=== PATIENT | female | born 1955 | race Caucasian/White ===

== ENCOUNTER → 2017-04-15 | Outpatient (CLI) | payer BC ==
--- NOTE | 2017-04-16 14:06 | MAMMOGRAPHY REPORT ---
BILATERAL DIGITAL SCREENING MAMMOGRAM WITH CAD: 04/15/2017 CLINICAL HISTORY: Routine screening. Patient has no complaints. TECHNIQUE: Current study was also evaluated with a Computer Aided Detection (CAD) system. Bilatera l CC and MLO views were obtained. COMPARISON: Comparison is made to exams dated: 04/09/2016 mammogram, 03/14/2015 mammogram, 03/08/2014 mammogram, 09/12/2013 ultrasound, 09/12/2013 mammogram, and 02/13/2010 mammogram - [facility]. BREAST COMPOSITION: There are scattered areas of fibroglandular density in both breasts. FINDINGS: There is a prominent left axillary lymph node which measures 2.6 x 2.2 centimeters, for w [facility] ultrasound is recommended for further evaluation. The remainder of both breasts are stable compared to prior exams, without suspicious masses, calcifi cations, or areas of architectural distortion noted. A biopsy marker clip is again noted in the rig ht upper outer quadrant. Bilateral benign-appearing calcifications are not significantly changed. Left inferior breast asymmetry on the MLO view is stable compared to prior exams including the 2012 exam. IMPRESSION: ACR BI-RADS CATEGORY 0: INCOMPLETE EVALUATION: NEED ADDITIONAL IMAGING EVALUATION Prominent left axillary lymph node, for which additional imaging evaluation is recommended. The pat ient will be called to schedule an appointment. Approximately 10% of breast cancers are not detected with mammography. A negative mammographic repor t should not delay biopsy if a clinically suggestive mass is present. Opal Pardo M.D. /:04/15/2017 16:42:42 Mc Kay Stitcher: Vaibhav MEDINA(R)(M), [facility] letter sent: Addl Imaging 0 BI-RADS Code: ACR BI-RADS Category 0: Incomplete Evaluation: Need Additional Imaging Evaluation
== END | disposition home or self-care (01) ==
LOC: C.MAMM 16:16
PROVIDERS: ATTEND Family Medicine
DX: Z12.31 Encounter for screening mammogram for malignant neoplasm of breast (principal); R59.0 Localized enlarged lymph nodes

== ENCOUNTER → 2017-04-29 | Outpatient (CLI) | payer BC ==
--- NOTE | 2017-04-29 13:11 | MAMMOGRAPHY REPORT ---
ULTRASOUND OF LEFT BREAST: 04/29/2017 CLINICAL HISTORY: Callback from screening mammogram for prominent left axillary lymph node. COMPARISON: Comparison is made to exams dated: 04/15/2017 mammogram, 04/09/2016 mammogram, 03/14/2015 m ammogram, 03/08/2014 mammogram, 09/12/2013 ultrasound, and 09/12/2013 mammogram - [facility]. TECHNIQUE: Real-time targeted ultrasound of the left axilla was performed. FINDINGS: Real-time, high resolution targeted ultrasound was performed of the left axilla. In the le ft axilla there is an abnormal left axillary lymph node which measures 1.9 x 1.2 x 1.7 cm. The lymph node is abnormally rounded and there is no echogenic fatty hilum. This corresponds with the abnorma l lymph node seen on the screening mammogram and is indeterminate. Recommend ultrasound guided core needle biopsy for further evaluation. A few other prominent axillary lymph nodes are seen elsewhere in the left axilla, which appear symmetric to the right axillary nodes and the lymph nodes are normal oval in shape and all demonstrate normal fatty frank. The other bilateral axillary lymph nodes appea r stable mammographically compared to multiple prior exams unlike the dominant abnormal left axillary lymph node which is a new finding. IMPRESSION: ACR BI-RADS CATEGORY 4: SUSPICIOUS - FOLLOW-UP RECOMMENDED Abnormal left axillary lymph node, for which ultrasound guided core needle biopsy is recommended for further evaluation. A phone call was made to the physician's office to confirm faxed results were received. The patient was verbally notified of the results. She tentatively scheduled the biopsy before leaving the depart ment. I will leave it up to the patient's physician if she can safely discontinue aspirin for 5 days prior to the procedure. Opal Pardo M.D. /:04/29/2017 08:55:05 Sustainable Landscape Architect: Katt MEDINA(Stephanie)(Ashkan), [facility] letter sent: Abnormal 4/5 BI-RADS Code: ACR BI-RADS Category 4: Suspicious
== END | disposition home or self-care (01) ==
LOC: C.MAMM 08:10
PROVIDERS: ATTEND Family Medicine
DX: R59.0 Localized enlarged lymph nodes (principal)

== ENCOUNTER → 2017-05-04 | Outpatient (CLI) | payer BC ==
--- NOTE | 2017-05-04 10:36 | Discharge Instructions ---
Discharge Instructions Procedure Procedure Date: May 04, 2017. Reason for visit: Left Axillary. Discharge Discharge Date: May 04, 2017. Discharge Diagnosis: post left axillary lymph node biopsy Medications Restart Stopped Medication(s): May restart Aspirin tonight as long as not bleeding through bandages Instructions Activity Recommendations: Additional Limitations (see below) Return to School/Work: no limitations Recommended Home Diet: No Limitations Provider Instructions: ACTIVITY RECOMMENDATIONS: * No lifting, pushing, pulling or exercising the affected side for three days. RETURN TO SCHOOL/WORK: * You may return to work/school after the procedure, but do not perform any strenuous activities for 24 to 48 hours. MEDICATIONS: * Tylenol (two 325 mg) every four to six hours if needed for mild pain (if not allergic to Tylenol). DIET: * Resume previous diet. SPECIAL CARE INSTRUCTIONS: * Keep biopsy site dry for 24 hours. May shower after 24 hours, but do not soak (bathe) incision. * May remove Tegaderm (plastic patch) tomorrow AFTER showering. * Leave the steri-strips on for one week. Allow the steri-strips to fall off by themselves. If not off after one week, you may remove them. You may place a Bandaid crosswise over the strips, if desired. * Apply ice 10 minutes on and 10 minutes off as needed. * Wear a bra at bedtime to sleep more comfortably for 2-3 days. * Your referring physician should have the results after approximately 5 to 7 business days. * Call for unusual bleeding, fever, drainage, etc or if you have any questions call [phone] during normal business hours or after hours call Dr Victoria, . FOLLOW UP VISIT: Follow-up with Referring Physician as scheduled. Allergies Coded Allergies: Penicillins (Verified Allergy, Mild, RASH, 12/28/09) Codeine (Verified Adverse Reaction, Mild, NAUSEA, 12/28/09) Maya Torres Recommendations: Call your doctor if: * Temperature above 101 degrees * Pain not relieved by pain medicine ordered * There is increased drainage or redness from any incision * You have any unanswered questions or concerns. Your Doctors Instructions noted above were prepared by provider Amparo Victoria. Patient Signature Section: Patient Instructions Signature Page Sara Dennis Patient (or Guardian) Signature/Date: I have read and understand the instructions given to me by my caregivers. Caregiver/RN/Doctor Signature/Date: The above-named patient and/or guardian has received patient instructions on this date. + Original Patient Signature Page (only) stays with chart. Please make copy for patient.
--- NOTE | 2017-05-04 13:12 | MAMMOGRAPHY REPORT ---
THIS REPORT HAS BEEN AMENDED. AMENDMENT: 05/06/2017 Amparo Victoria M.D. Pathology results from the ultrasound guided core biopsy of an enlarged left axillary lymph node with thickened cortex yielded changes suggestive of intra-or follicular hyperplasia. A definitive diagno sis cannot be rendered in this case. Surgical excision is suggested. Based on the pathology recommendations, surgical consultation for surgical excisional biopsy is recom mended. ULTRASOUND GUIDED BIOPSY LEFT BREAST: 05/04/2017 CLINICAL HISTORY: Enlarged left axillary lymph node. Patient presents for ultrasound-guided core bio psy. COMPARISON: Comparison is made to exams dated: 04/29/2017 ultrasound, 04/09/2016 mammogram, 04/15/2017 m ammogram, 03/14/2015 mammogram, and 03/08/2014 mammogram - [facility]. PATIENT CONSENT: The procedure, risks and benefits were discussed with the patient and informed writt en consent was obtained. Specific risks to this procedure include: bleeding, infection, puncture of a djacent structure, nontarget biopsy, sampling error, medication reaction, metal allergy and pain. PROCEDURE DESCRIPTION: A time out was performed and the left axilla was agreed as the site of biopsy. The skin was prepped and draped in the usual sterile fashion. The enlarged lymph nodes with thickene d cortex in the left axilla was chosen as the target for biopsy. Subcutaneous and intraparenchymal 1% buffered lidocaine, with and without epinephrine, was administered as local anesthesia. A skin incis ion was made. Through the incision, 3 samples were taken with an 18 gauge Quick Core biopsy device. A metallic marker was placed at the biopsy site. Hemostasis was achieved after manual compression. Th e patient tolerated the procedure well and there was no immediate complication. A postprocedure left MLO view was obtained. There is a new ribbon-shaped metallic biopsy marker with in the enlarged lymph node in question. No significant postbiopsy hematoma is seen. IMPRESSION: ULTRASOUND GUIDED BIOPSY Status post ultrasound guided core biopsy of an enlarged left axillary lymph node, with biopsy marker placed at the site. The patient will receive notification of the biopsy results from her referring physician. Amparo Victoria M.D. ay/:05/04/2017 10:50:32 Shoe Shanker: Roxanne ROLLINS)(Ashkan), [facility]
--- NOTE | 2017-05-04 13:12 | MAMMOGRAPHY REPORT ---
UNILATERAL LEFT DIGITAL DIAGNOSTIC MAMMOGRAM TOMOSYNTHESIS: 05/04/2017 CLINICAL HISTORY: Status post ultrasound guided core biopsy of an enlarged left axillary lymph node. Please refer to the report from left axillary ultrasound guided core biopsy performed at the same mariely e for full detail. IMPRESSION: POST PROCEDURE IMAGING FOR MARKER PLACEMENT Please refer to the report from left axillary ultrasound guided core biopsy performed at the same mariely e for full detail. Approximately 10% of breast cancers are not detected with mammography. A negative mammographic report should not delay biopsy if a clinically suggestive mass is present. Amparo Victoria M.D. ay/:05/04/2017 10:41:21 Morgue Attendant: Roxanne MEDINA(R)(M), [facility] BI-RADS Code: Post Procedure Imaging For Marker Placement
== END | disposition home or self-care (01) ==
LOC: C.MAMM 10:00
PROVIDERS: ATTEND Family Medicine
DX: R59.0 Localized enlarged lymph nodes (principal)

== ENCOUNTER → 2017-08-19 | Outpatient (CLI) | payer BC ==
--- NOTE | 2017-08-19 12:00 | DIAGNOSTIC IMAGING REPORT ---
PET/CT SKULL-THIGH CLINICAL HISTORY: LYMPHOMA COMPARISON STUDY: No previous studies for comparison. FINDINGS: The patient was injected with 15.6 mCi of F 18 labeled FDG. Following the standard induction phase, PET/CT scanning was performed from the top of the skull to the upper thigh region. Intracranial activity is unremarkable. Within the neck, there is a focus of increased FDG activity fusing to a 15 mm right supraclavicular nodule. This is SUV maximum of 2.6. This may be an area of prior surgery and clinical correlation this regard is recommended. Within the chest, there is no pathologic mediastinal or hilar osei activity. There is an FDG avid 15 mm left axillary lymph node with an SUV maximum of 3.2. There is no pathologic parenchymal activity. Within the abdomen and pelvis, there is physiologic urinary tract and bowel activity. Activity within the liver spleen and adrenal glands is felt to be normal. There is no pathologic osei activity. There is no pathologic bone activity. IMPRESSION: 1. Focus of increased FDG activity fusing to a 15 mm right supraclavicular nodule. This hasn't SUV maximum of 2.6. This may be an area of prior surgery and clinical correlation in this regard is advocated 2. FDG avid 15 mm left axillary lymph node with SUV maximum of 3.2. 3. No evidence of FDG avid mediastinal, hilar, abdominal, or pelvic lymphadenopathy Electronically signed by: Raghavendra Shultz M.D. 08/19/2017 11:59 AM Dictated Date/Time: 08/19/2017 11:49 AM
== END | disposition home or self-care (01) ==
LOC: C.PET 09:49
PROVIDERS: ATTEND Internal Medicine Hematology
DX: C82.01 Follicular lymphoma grade I, lymph nodes of head, face, and neck (principal)

== ENCOUNTER → 2017-12-21 | Outpatient (CLI) | payer BC, OTHER ==
[2017-12-21 17:19] LABS: BASO % 0.4 %; BASO ABS # 0.05 K/uL (0-0.2); EOS % 2.5 %; EOS ABS # 0.32 K/uL (0-0.5); HEMATOCRIT 44.5 % (37-47); HEMOGLOBIN 15.1 g/dL (12.0-16.0); IG# 0.03 K/uL (0.00-0.02); LYMPH % 30.8 %; LYMPH ABS # 3.89 K/uL (1.2-3.4); MEAN CELL VOLUME 84.6 fL (80-100); MEAN CORPUSCULAR HEMOGLOBIN 28.7 pg (25-34); MEAN CORPUSCULAR HGB CONC 33.9 g/dl (32-36); MEAN PLATELET VOLUME 10.1 fL (7.4-10.4); MONO % 8.6 %; MONO ABS # 1.09 K/uL (0.11-0.59); NEUT % 57.5 %; NEUT ABS # 7.27 K/uL (1.4-6.5); PLATELET COUNT 285 K/uL (130-400); RED CELL DISTRIBUTION WIDTH CV 13.5 % (11.5-14.5); RED CELL DISTRIBUTION WIDTH SD 41.5 fL (36.4-46.3); WHITE BLOOD COUNT 12.65 K/uL (4.8-10.8)
[2017-12-21 17:25] LABS: ALBUMIN 3.8 gm/dl (3.4-5.0); ALT/SGPT 37 U/L (12-78); AST/SGOT 21 U/L (15-37); BLOOD UREA NITROGEN 21 mg/dl (7-18); CALCIUM 9.4 mg/dl (8.5-10.1); CARBON DIOXIDE 33 mmol/L (21-32); CREATININE 0.91 mg/dl (0.60-1.20); GLUCOSE 86 mg/dl (70-99); POTASSIUM 3.4 mmol/L (3.5-5.1); SODIUM 140 mmol/L (136-145)
[2017-12-21 17:27] LABS: ALKALINE PHOSPHATASE 78 U/L (45-117); TOTAL PROTEIN 7.1 gm/dl (6.4-8.2)
== END | disposition home or self-care (01) ==
LOC: C.LABPVFM 15:53
PROVIDERS: ATTEND Internal Medicine Hematology & Oncology
DX: C85.10 Unspecified B-cell lymphoma, unspecified site (principal)

== ENCOUNTER → 2018-03-03 | Outpatient (CLI) | payer BC, OTHER ==
[2018-03-03 18:16] LABS: BLOOD UREA NITROGEN 23 mg/dl (7-18); CALCIUM 9.2 mg/dl (8.5-10.1); CARBON DIOXIDE 35 mmol/L (21-32); GLUCOSE 76 mg/dl (70-99); POTASSIUM 3.7 mmol/L (3.5-5.1); SODIUM 141 mmol/L (136-145)
== END | disposition home or self-care (01) ==
LOC: C.LABPVFM 13:18
PROVIDERS: ATTEND Nurse Practitioner Family
DX: I10 Essential (primary) hypertension (principal)

== ENCOUNTER → 2018-06-17 | Outpatient (CLI) | payer OTHER ==
[~2018-06-17] MED LIST: ASPI325T39 PO; ATOR-24 PO; B-COTAB53 PO; BUPR-79 PO; CALC1TAB27 PO; CHOL1000 PO; LISI10TA PO; LORA-741 PO; MULT-506 PO; MXZC25 PO; OMEG10007 PO; PARO1TAB27 PO; VITACAP26 PEG
[2018-06-17 12:47] LABS: BASO % 0.3 %; BASO ABS # 0.03 K/uL (0-0.2); EOS % 2.4 %; EOS ABS # 0.24 K/uL (0-0.5); HEMATOCRIT 46.2 % (37-47); HEMOGLOBIN 16.3 g/dL (12.0-16.0); IG# 0.02 K/uL (0.00-0.02); LYMPH % 23.7 %; LYMPH ABS # 2.34 K/uL (1.2-3.4); MEAN CELL VOLUME 83.1 fL (80-100); MEAN CORPUSCULAR HEMOGLOBIN 29.3 pg (25-34); MEAN CORPUSCULAR HGB CONC 35.3 g/dl (32-36); MEAN PLATELET VOLUME 10.3 fL (7.4-10.4); MONO % 7.4 %; MONO ABS # 0.73 K/uL (0.11-0.59); NEUT ABS # 6.51 K/uL (1.4-6.5); PLATELET COUNT 274 K/uL (130-400); RED CELL DISTRIBUTION WIDTH CV 13.4 % (11.5-14.5); RED CELL DISTRIBUTION WIDTH SD 40.5 fL (36.4-46.3); WHITE BLOOD COUNT 9.87 K/uL (4.8-10.8)
[2018-06-17 13:12] LABS: ALBUMIN 3.9 gm/dl (3.4-5.0); ALKALINE PHOSPHATASE 80 U/L (45-117); ALT/SGPT 35 U/L (12-78); AST/SGOT 21 U/L (15-37); BLOOD UREA NITROGEN 17 mg/dl (7-18); CALCIUM 9.2 mg/dl (8.5-10.1); CARBON DIOXIDE 28 mmol/L (21-32); CREATININE 1.08 mg/dl (0.60-1.20); GLUCOSE 105 mg/dl (70-99); POTASSIUM 3.6 mmol/L (3.5-5.1); SODIUM 138 mmol/L (136-145); TOTAL PROTEIN 7.3 gm/dl (6.4-8.2)
== END | disposition home or self-care (01) ==
LOC: C.LABPVFM 11:11
PROVIDERS: ATTEND Internal Medicine Hematology & Oncology
DX: C85.10 Unspecified B-cell lymphoma, unspecified site (principal)

== ENCOUNTER → 2018-06-28 | Day surgery (SDC) | payer OTHER ==
[2018-06-24 09:00] VITALS: Ht 152.4 cm; Wt 81.8 kg
[~2018-06-28] VITALS: Ht 152.4 cm; Wt 81.8 kg
[~2018-06-28] MED LIST changes: +500ML BSS 0.3ML EPI 1:1000PF IRRIG ONE; +ACETAMINOPHEN 325 MG TAB PO PRN; +AMVISC PLUS 0.8ML SYRINGE INT OCU ONE; +ATROPINE SULFATE 0.1 MG/ML 5ML SYR IV PRN; +BRIMONIDINE TART 0.2% OP SOLN PER DROP CHARGE ONE; +BSS FLUSH ONE; +ENDOCOAT 0.85ML SYRINGE INT OCU ONE; +EpHEDrine SULFATE INJ 50 MG/ML AMP IV PRN; +EpINEphrine INJ 1MG/ML AMP 1 MG/ML AMP ONE; +FENTANYL CITRATE INJ 50 MCG/1 ML 2 ML VIAL ONE; +LACTATED RINGER'S 1000ML 500 ML IV SCH; +LIDOCAINE 4% OP SOLN DROP CHARGE ONE; +LIDOCAINE 4% OP SOLN DROP CHARGE OPL SCH; +LIDOCAINE HCL 1% MPF 2 ML VIAL ONE; +MIDAZOLAM HCL 1 MG/ML 2ML VIAL ONE; +MOXIFLOXACIN OPH SOLN PER DROP CHARGE ONE; +POVIDONE-IODINE OP SOLN 30 ML BTL ONE; +PROPARACAINE 0.5% OP SOLN PER DROP CHARGE OPL SCH; +TOBRAMYCIN/DEXAMETHASONE OPH OINT PER APPLN CHARGE ONE
[2018-06-28] MEDS: PHENYLEPHRINE HCL 2.5% OP SOLN PER DROP CHARGE OPL SCH ×2 (11:17→11:24)
[2018-06-28] MEDS: TROPICAMIDE 1% OP SOLN PER DROP CHARGE OPL SCH ×2 (11:18→11:25)
[2018-06-28] MEDS: CYCLOPENTOLATE HCL 1% OP SOLN PER DROP CHARGE OPL SCH ×2 (11:19→11:26)
[2018-06-28] MEDS: KETOROLAC 0.5% OP SOLN PER DROP CHARGE OPL SCH ×2 (11:20→11:27)
[2018-06-28] MEDS: MOXIFLOXACIN OPH SOLN PER DROP CHARGE OPL SCH ×2 (11:21→11:32)
--- NOTE | 2018-06-28 11:23 | History & Physical Bridge - SC ---
H&P Re-Evaluation Bridge Note: I have examined the patient, reviewed the History & Physical and in the interval since the performance of the History & Physical I have noted the following changes of clinical significance: No changes noted
--- NOTE | 2018-06-28 12:17 | [facility] Operative Report ---
Operative Report Operative Date Jun 28, 2018. Pre-Operative Diagnosis Cataract Left Eye Post-Operative Diagnosis Same as pre op Procedure(s) Performed Left Cataract Phacoemulsification With Intraocular Lens Implant Surgeon Dr. Edmondson Resident In Diagnostic Radiology Surgeon(s) None Estimated Blood Loss 0ml Findings cataract left eye Specimens None Drains None Anesthesia Type MAC Complication(s) none Disposition no Recovery Room / PACU Indications decreased vision left eye Description of Procedure After informed consent was obtained in the holding area the patient was wheeled back to the operating room where cardiac monitoring leads and oxygen by nasal cannula was administered by Anesthesia. Gentle IV sedation was given, and the patient's left eye was prepped and draped in usual sterile fashion. A wire lid speculum was placed into the left eye and the operating microscope was swung into position. Using 0.12 forceps and a Supersharp blade a paracentesis port was made 2 o'clock hours away from the 3 o'clock position of the patient's left eye. 1% non-preserved Lidocaine was then injected into the anterior chamber for anesthesia. A 2.0 mm keratotome blade was then used to make a shelved clear corneal incision at the 3 o'clock position of the left eye. Amvisc was injected into the anterior chamber and a cystotome and Utrata forceps were used to perform a curvilinear capsulorrhexis. BSS on a hydrodissection cannula was used to hydrodissect the lens nucleus away from the capsular bag. The phacoemulsification handpiece was then used in a stop and chop fashion to remove the lens nucleus. The irrigation and aspiration handpiece was then used to remove the residual cortical material. Amvisc was injected into the capsular bag and anterior chamber and a Bausch [employer] Lomb MX60E 15.5 Diopter intraocular lens was injected into the capsular bag. Irrigation and aspiration handpiece was used to remove the residual viscoelastic material. The wounds were hydrated and noted to be watertight. The wire lid speculum was removed from the eye. Vigamox, Brimonidine, and TobraDex ointment were placed on the eye and it was shielded. It should be noted that EndoCoat was used extensively during the case to protect the cornea endothelium. DISPOSITION: The patient tolerated the procedure well and was wheeled to the post anesthesia care unit in stable condition. I attest to the content of the Intraoperative Record and any orders documented therein. Any exceptions are noted below. I attest to the content of the Intraoperative Record and any orders documented therein. Any exceptions are noted below.
--- NOTE | 2018-06-28 12:19 | Discharge Instructions-SurgCtr ---
Discharge Instructions Date of Service Jun 28, 2018. Visit Reason for Visit: Left Cataract Discharge Discharge Diagnosis / Problem: cataract left eye Discharge Goals Goal(s): Improve function Activity Recommendations Activity Limitations: per Instructions/Follow-up section Lifting Limitations: no more than 5 pounds Anesthesia . Post Anesthesia Instructions: If you have had General Anesthesia or IV Sedation: * Do not drive today. * Resume driving when surgeon permits. * Do not make important decisions or sign legal documents today. * Call surgeon for: 1. Temperature elevations greater than 101 degrees F. 2. Uncontrollable pain. 3. Excessive bleeding. 4. Persistent nausea and vomiting. 5. Medication intolerance (nausea, vomiting or rash). * For nausea and vomiting use only clear liquids such as: tea, soda, bouillon until nausea subsides, then gradually increase diet as tolerated. * If you have any concerns or questions, call your surgeon's office. If physician is unavailable and it is an emergency, call 911 or go to the nearest emergency room. . Instructions / Follow-Up Instructions / Follow-Up ACTIVITY RECOMMENDATIONS: * Light activities * You may walk outside, read, watch television. * Mild irritation and blurred vision are common for the first few days, redness around the white part of the eye is common. MEDICATIONS: Resume previous medications unless instructed otherwise by your surgeon. Eye drops (today and tomorrow): Cipro - one drop in operative eye every 2 hours while awake Prednisolone 1% - one drop in operative eye every 2 hours while awake Ilevro - one drop operative eye 1 times daily SPECIAL CARE INSTRUCTIONS: * If any problems or concerns, please call Dr. Edmondson's office at . * Keep plastic shield taped over eye to sleep at night. * Keep plastic shield taped over eye except to administer eye drops. * Keep plastic shield on until office visit the following day. FOLLOW UP VISIT: Follow-up with Dr. Edmondson in the [place] office as scheduled. If not already scheduled, please call the office at . Diet Recommendations Home Diet: resume previous diet Procedures Procedures Performed: Left Cataract Phacoemulsification With Intraocular Lens Implant Pending Studies Studies pending at discharge: no Medical Emergencies . Who to Call and When: Medical Emergencies: If at any time you feel your situation is an emergency, please call 911 immediately. . Non-Emergent Contact Non-Emergency issues call your: [employer] Drill Operator . . "Provider Documentation" section prepared by Scott Edmondson. .
[2018-06-28 12:29] VITALS: TEMP 36.5
--- NOTE | 2018-06-28 12:42 | Anesthesia Progress Nt - [facility] ---
Anesthesia Post Op Note Date & Time Jun 28, 2018 at 12:42 Vital Signs Pain Intensity: 0 Vital Signs Past 12 Hours Date Time Temp Pulse Resp B/P (MAP) Pulse Ox O2 Delivery O2 Flow Rate FiO2 06/28/18 12:29 36.5 75 16 96/63 (74) 95 Room Air 06/28/18 10:55 37.2 68 14 111/74 (86) 93 Room Air Notes Mental Status: alert / awake / arousable, participated in evaluation Pt Amnestic to Procedure: Yes Nausea / Vomiting: adequately controlled Pain: adequately controlled Airway Patency, RR, SpO2: stable & adequate BP & HR: stable & adequate Hydration State: stable & adequate Anesthetic Complications: no major complications apparent
[2018-06-28 12:50] VITALS: BP 103/67; PULSE 80; O2SAT 96
== END | disposition home or self-care (01) ==
LOC: X.SURG 10:38
PROVIDERS: ATTEND Ophthalmology
DX: H25.12 Age-related nuclear cataract, left eye (principal); I10 Essential (primary) hypertension; E78.00 Pure hypercholesterolemia, unspecified; F32.9 Major depressive disorder, single episode, unspecified; Z90.710 Acquired absence of both cervix and uterus; Z85.72 Personal history of non-Hodgkin lymphomas; Z88.0 Allergy status to penicillin; Z88.5 Allergy status to narcotic agent